=== PATIENT | male | born 1950 | race African-American/Black ===

== ENCOUNTER → 2020-10-19 | Outpatient (CLI) | payer MEDICARE | LOC: COL.RAD 09:49 | DX: M25.552 Pain in left hip (principal) | CPT/HCPCS: J3301; Q9967 ==

== ENCOUNTER → 2021-01-22 | Outpatient (CLI) | payer MEDICARE | LOC: COL.RAD 07:58 | DX: M25.752 Osteophyte, left hip (principal) | CPT/HCPCS: J3301; Q9967 ==

== ENCOUNTER → 2021-04-19 | Outpatient (CLI) | payer MEDICARE | LOC: COL.RAD 14:49 | DX: K80.20 Calculus of gallbladder without cholecystitis without obstruction (principal); N28.9 Disorder of kidney and ureter, unspecified; J98.59 Other diseases of mediastinum, not elsewhere classified | CPT/HCPCS: Q9967 ==

== ENCOUNTER → 2021-04-27 | Outpatient (CLI) | payer MEDICARE | LOC: COL.RAD 09:01 | DX: N28.89 Other specified disorders of kidney and ureter (principal); K76.89 Other specified diseases of liver; K80.20 Calculus of gallbladder without cholecystitis without obstruction ==

== ENCOUNTER → 2021-05-04 | Outpatient (CLI) | payer MEDICARE | LOC: COL.RAD 13:19 | DX: N28.89 Other specified disorders of kidney and ureter (principal) | CPT/HCPCS: A9575 ==

== ENCOUNTER → 2021-11-21 | Outpatient (CLI) | payer MEDICARE ==
[~2021-11-21] MED LIST: ASPIRIN E.C. 8181 MG PO; FLOMAX 0.40.4 MG/CAP PO; HCTZ 25MG TAB25 MG PO; LOPRESSOR100 MG PO; PRIL40 PO; TYLENOL 325MG325 MG PO; ULTRAM 50MG TAB50 MG PO; VIAGRA100 M1 PO
== END ==
LOC: COL.RAD 13:30
DX: N28.1 Cyst of kidney, acquired (principal)